=== PATIENT | male | born 1975 | race Hispanic/Latino ===

== ENCOUNTER 2019-04-22 18:46 | Emergency (ER) | payer OTHER ==
[2019-04-22] MEDS ORDERED: LIDOCAINE 2% MPF 5 ML VIAL ONE (21:06)
[2019-04-22] MEDS ORDERED: TETANUS & DIPHTHERIA TOX,ADULT 0.5 ML VIAL ONE (21:07)
[2019-04-22] MEDS ORDERED: CEFAZOLIN/SWI 1gm 1 GM/10 ML SYR ONE (21:07)
[2019-04-22 21:11] LABS: Absolute Lymphocytes (CBC) 3.4 K/uL (0.7-4.9); Hematocrit 45.8 % (39.6-49.0); Lymphocytes % 33.6 % (15.3-44.8); MPV 8.6 fL (7.6-11.3); RBC Red Blood Cell Count 5.26 M/uL (4.33-5.43)
[2019-04-22 21:12] LABS: Protime INR 1.02
[2019-04-22 21:33] LABS: ALT/SGPT 39 U/L (12-78); AST/SGOT 21 U/L (15-37); Albumin 4.2 g/dL (3.4-5.0); Alkaline Phosphatase 66 U/L (45-117); BUN Blood Urea Nitrogen 22 mg/dL (7-18); Bicarbonate 29 mmol/L (21-32); Bilirubin Direct 0.1 mg/dL (0-0.2); Bilirubin Total 0.5 mg/dL (0.2-1.0); Glucose Level 91 mg/dL (74-106); Magnesium 2.3 mg/dL (1.8-2.4); NT PRO-BNP 25 pg/mL (<125); Potassium 3.8 mmol/L (3.5-5.1); Protein, Total 7.6 g/dL (6.4-8.2); Sodium Level 140 mmol/L (136-145); Troponin (Emerg Dept Use Only) < 0.02 ng/mL (0.0-0.045)
--- NOTE | 2019-04-22 22:19 | ER ---
Nurse's Notes [facility] Name: Ethan Otero Age: 44 yrs Sex: Male : 1975 Arrival Date: 04/22/2019 Time: 18:49 Bed 20 Private MD: Diagnosis: Fall due to bumping against object;Syncope and collapse;Heat exhaustion, unspecified;Laceration without foreign body of other part of head-nasal Presentation: 04/22 18:49 Presenting complaint: Patient states: was vomiting, walked to go get some water, felt iw dizzy and faint, felt like he was going to pass out, only remembers feeling something hit his face and then there was blood all over his face, nose was bleeding,laceration to nose, denies dizziness now, still feels nauseated, takes promethazine for nausea, incident occurred at 1615, had to be seen by medic at work before coming to ER. Transition of care: patient was not received from another setting of care. Onset of symptoms was April 22, 2019 at 16:15. Risk Assessment: Do you want to hurt yourself or someone else? Patient reports no desire to harm self or others. Initial Sepsis Screen: Does the patient meet any 2 criteria? No. Patient's initial sepsis screen is negative. Does the patient have a suspected source of infection? No. Patient's initial sepsis screen is negative. Care prior to arrival: None. 18:49 Method Of Arrival: Ambulatory iw 18:49 Acuity: DAVIDE 2 iw Historical: - Allergies: 18:53 No Known Allergies; iw - Home Meds: 18:53 lisinopril 40 mg Oral tab 1 tab once daily [Active]; iw - PMHx: 18:53 Hypertension; iw - PSHx: 18:53 left knee; iw - Immunization history:: Adult Immunizations not up to date. - Social history:: Smoking status: Patient uses tobacco products, smokes one-half pack cigarettes per day. - Ebola Screening: : Patient negative for fever greater than or equal to 101.5 degrees Fahrenheit, and additional compatible Ebola Virus Disease symptoms Patient denies exposure to infectious person Patient denies travel to an Ebola-affected area in the 21 days before illness onset No symptoms or risks identified at this time. - Family history:: not pertinent. Screenin:15 Abuse screen: Denies threats or abuse. Denies injuries from another. Nutritional aa1 screening: No deficits noted. Tuberculosis screening: No symptoms or risk factors identified. Fall Risk Fall in past 12 months (25 points). Assessment: 19:15 General: Appears in no apparent distress. comfortable, Behavior is calm, cooperative, aa1 appropriate for age. Pain: Denies pain. Neuro: Level of Consciousness is awake, alert, obeys commands, Oriented to person, place, time, situation, Moves all extremities. Full function Gait is steady, Speech is normal, Pupils are PERRLA, Denies weakness blurred vision dizziness. Cardiovascular: Reports syncope, Denies chest pain, diaphoresis, lightheadedness, palpitations, shortness of breath, Heart tones S1 S2 present Capillary refill < 3 seconds Patient's skin is warm and dry. Rhythm is regular. Respiratory: Airway is patent Respiratory effort is even, unlabored, Respiratory pattern is regular, symmetrical. GI: No signs and/or symptoms were reported involving the gastrointestinal system. : No signs and/or symptoms were reported regarding the genitourinary system. EENT: Nares with bleeding noted on right. Derm: Skin is intact, is healthy with good turgor, Skin is pink, warm \T\ dry. Musculoskeletal: Circulation, motion, and sensation intact. Capillary refill < 3 seconds. 20:15 Reassessment: Patient appears in no apparent distress at this time. Patient and/or aa1 family updated on plan of care and expected duration. Pain level reassessed. Patient is alert, oriented x 3, equal unlabored respirations, skin warm/dry/pink. Pt continues to await initial assessment from ERP. 21:25 Reassessment: Patient appears in no apparent distress at this time. Patient and/or aa1 family updated on plan of care and expected duration. Pain level reassessed. Patient is alert, oriented x 3, equal unlabored respirations, skin warm/dry/pink. Awaiting provider for lac repair. 22:25 Reassessment: Patient appears in no apparent distress at this time. Patient and/or aa1 family updated on plan of care and expected duration. Pain level reassessed. Patient is alert, oriented x 3, equal unlabored respirations, skin warm/dry/pink. Pt awaiting ERP for lac repair. 22:31 Reassessment: ERP at bedside for lac repair; pt to be dc'd once procedure complete. aa1 22:43 Reassessment: Patient appears in no apparent distress at this time. Patient is alert, aa1 oriented x 3, equal unlabored respirations, skin warm/dry/pink. Discussed d/c \T\ f/u instructions with pt; denies questions or concerns at this time. Vital Signs: 18:53 BP 155 / 104; Pulse 73; Resp 16 S; Temp 99.4(TE); Pulse Ox 98% on R/A; Weight 88.45 kg; iw Height 5 ft. 10 in. (177.80 cm); Pain 0/10; 19:38 BP 146 / 104; Pulse 78; Resp 18; Pulse Ox 99% on R/A; Pain 0/10; aa1 20:30 BP 154 / 106; Pulse 65; Resp 14; Pulse Ox 97% on R/A; Pain 0/10; aa1 21:25 BP 159 / 104; Pulse 64; Resp 14; Temp 98.3; Pulse Ox 96% on R/A; Pain 0/10; aa1 22:43 BP 149 / 94; Pulse 61; Resp 18; Temp 98.1; Pulse Ox 98% on R/A; Pain 0/10; aa1 18:53 Body Mass Index 27.98 (88.45 kg, 177.80 cm) iw ED Course: 18:49 Patient arrived in ED. iw 18:53 Triage completed. iw 18:53 Arm band placed on. iw 19:15 Patient has correct armband on for positive identification. Placed in gown. Bed in low aa1 position. Call light in reach. Pulse ox on. NIBP on. Warm blanket given. 19:32 Svitlana Vallejo, RN is Primary Nurse. aa1 20:03 Quan Rodas MD is Attending Physician. cam 20:55 Initial lab(s) drawn, by me, sent to lab. EKG done, by ED staff, reviewed by Quan Rodas MD. Inserted saline lock: 18 gauge in right antecubital area, using aseptic technique. Blood collected. 21:08 CT completed. Patient tolerated procedure well. Patient moved back from CT. mw3 21:16 XRAY Chest (1 view) In Process Unspecified. EDMS 21:22 CT Head C Spine In Process Unspecified. EDMS 21:22 CT Facial Bones W/O Con In Process Unspecified. EDMS 22:18 Adela Wright MD is Referral Physician. [facility] 22:31 Assist provider with laceration repair on right nostril that was 2.5 cm. or less using aa1 sutures. Set up tray. Performed by Quan Rodas MD Dressed with Neosporin, Patient tolerated well. 22:43 IV discontinued, intact, bleeding controlled, No redness/swelling at site. Pressure aa1 dressing applied. 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 Exp: aa1 12/22/2020. Lot #: [id number]. } Route: IM; Site: right deltoid; 22:02 Follow up: Response: No adverse reaction aa1 22:32 Drug: Lidocaine (1 %) 2 ml Volume: 5 ml; Route: Infiltration; aa1 Outcome: 22:18 Discharge ordered by . [facility] 22:43 Discharged to home ambulatory, with family. aa1 22:43 Condition: good 22:43 Discharge instructions given to patient, family, Instructed on discharge instructions, follow up and referral plans. medication usage, wound care, Demonstrated understanding of instructions, follow-up care, medications, wound care. 22:45 Patient left the ED. aa1 Signatures: Dispatcher [employer] Svitlana Castañeda RN RN aa1 Anderson, Corey, MD MD cha Williams, Irene, RN RN iw Willis, Michelle mw3
--- NOTE | 2019-04-22 22:19 | EDPHYS ---
Physician Documentation [facility] Name: Ethan Otero Age: 44 yrs Sex: Male : 1975 Arrival Date: 04/22/2019 Time: 18:49 Bed 20 Private MD: ED Physician Quan Rodas HPI: 04/22 20:57 This 44 yrs old Male presents to ER via Ambulatory with complaints of Passed cam Out Prior To Arrival. 20:57 The patient has experienced syncope, collapsed. Onset: The symptoms/episode cam began/occurred just prior to arrival. Duration: This was a single episode, that lasted 20 second(s). Context: the episode(s) was witnessed, by co-worker(s). Associated injury: Head/face:. Associated signs and symptoms: The patient has no apparent associated signs or symptoms. The patient has not experienced similar symptoms in the past. Historical: - Allergies: 18:53 No Known Allergies; iw - Home Meds: 18:53 lisinopril 40 mg Oral tab 1 tab once daily [Active]; iw - PMHx: 18:53 Hypertension; iw - PSHx: 18:53 left knee; iw - Immunization history:: Adult Immunizations not up to date. - Social history:: Smoking status: Patient uses tobacco products, smokes one-half pack cigarettes per day. - Ebola Screening: : Patient negative for fever greater than or equal to 101.5 degrees Fahrenheit, and additional compatible Ebola Virus Disease symptoms Patient denies exposure to infectious person Patient denies travel to an Ebola-affected area in the 21 days before illness onset No symptoms or risks identified at this time. - Family history:: not pertinent. ROS: 20:57 Constitutional: Negative for fever, chills, and weight loss, Eyes: Negative for injury, cam pain, redness, and discharge, ENT: Negative for injury, pain, and discharge, Neck: Negative for injury, pain, and swelling, Cardiovascular: Negative for chest pain, palpitations, and edema, Respiratory: Negative for shortness of breath, cough, wheezing, and pleuritic chest pain, Abdomen/GI: Negative for abdominal pain, nausea, vomiting, diarrhea, and constipation, Back: Negative for injury and pain, : Negative for injury, bleeding, discharge, and swelling, MS/Extremity: Negative for injury and deformity, Psych: Negative for depression, anxiety, suicide ideation, homicidal ideation, and hallucinations, Allergy/Immunology: Negative for hives, rash, and allergies, Endocrine: Negative for neck swelling, polydipsia, polyuria, polyphagia, and marked weight changes, Hematologic/Lymphatic: Negative for swollen nodes, abnormal bleeding, and unusual bruising. 20:57 Skin: Positive for laceration(s), swelling, of the nose. Exam: 20:57 Constitutional: This is a well developed, well nourished patient who is awake, alert, cam and in no acute distress. Eyes: Pupils equal round and reactive to light, extra-ocular motions intact. Lids and lashes normal. Conjunctiva and sclera are non-icteric and not injected. Cornea within normal limits. Periorbital areas with no swelling, redness, or edema. Neck: Trachea midline, no thyromegaly or masses palpated, and no cervical lymphadenopathy. Supple, full range of motion without nuchal rigidity, or vertebral point tenderness. No Meningismus. Chest/axilla: Normal chest wall appearance and motion. Nontender with no deformity. No lesions are appreciated. Cardiovascular: Regular rate and rhythm with a normal S1 and S2. No gallops, murmurs, or rubs. Normal PMI, no JVD. No pulse deficits. Respiratory: Lungs have equal breath sounds bilaterally, clear to auscultation and percussion. No rales, rhonchi or wheezes noted. No increased work of breathing, no retractions or nasal flaring. Abdomen/GI: Soft, non-tender, with normal bowel sounds. No distension or tympany. No guarding or rebound. No evidence of tenderness throughout. Back: No spinal tenderness. No costovertebral tenderness. Full range of motion. Male : Normal genitalia with no discharge or lesions. Skin: Warm, dry with normal turgor. Normal color with no rashes, no lesions, and no evidence of cellulitis. MS/ Extremity: Pulses equal, no cyanosis. Neurovascular intact. Full, normal range of motion. Neuro: Awake and alert, GCS 15, oriented to person, place, time, and situation. Cranial nerves II-XII grossly intact. Motor strength 5/5 in all extremities. Sensory grossly intact. Cerebellar exam normal. Normal gait. Psych: Awake, alert, with orientation to person, place and time. Behavior, mood, and affect are within normal limits. 20:57 Head/face: Noted is a laceration(s), that is jagged, .5 cm(s), of the right nostril. Vital Signs: 18:53 BP 155 / 104; Pulse 73; Resp 16 S; Temp 99.4(TE); Pulse Ox 98% on R/A; Weight 88.45 kg; iw Height 5 ft. 10 in. (177.80 cm); Pain 0/10; 19:38 BP 146 / 104; Pulse 78; Resp 18; Pulse Ox 99% on R/A; Pain 0/10; aa1 20:30 BP 154 / 106; Pulse 65; Resp 14; Pulse Ox 97% on R/A; Pain 0/10; aa1 21:25 BP 159 / 104; Pulse 64; Resp 14; Temp 98.3; Pulse Ox 96% on R/A; Pain 0/10; aa1 22:43 BP 149 / 94; Pulse 61; Resp 18; Temp 98.1; Pulse Ox 98% on R/A; Pain 0/10; aa1 18:53 Body Mass Index 27.98 (88.45 kg, 177.80 cm) iw Laceration: 20:57 Wound Repair of 0.5cm ( 0.2in ) subcutaneous laceration to right nostril. Irregularly cam shaped.. Hemostasis noted.. Distal neuro/vascular/tendon intact. Anesthesia: Local anesthetic administered with 2 mls of 1% lidocaine. Wound prep: Simple cleansing by me. Skin closed with 2 6-0 Prolene using interrupted sutures and sterile technique. Dressed with Neosporin. Patient tolerated well. MDM: 20:03 Patient medically screened. [facility] 22:17 Data reviewed: vital signs, nurses notes, lab test result(s), EKG, radiologic studies, [facility] CT scan, plain films. 04/22 20:48 Order name: Basic Metabolic Panel; Complete Time: 22:16 [facility] 04/22 20:48 Order name: CBC with Diff; Complete Time: 22:16 [facility] 04/22 20:48 Order name: LFT's; Complete Time: 22:16 [facility] 04/22 20:48 Order name: Magnesium; Complete Time: 22:16 aa 04/22 20:48 Order name: NT PRO-BNP; Complete Time: 22:16 aa 04/22 20:48 Order name: PT-INR; Complete Time: 22:16 [facility] 04/22 20:48 Order name: Troponin (emerg Dept Use Only); Complete Time: 22:16 [facility] 04/22 20:48 Order name: XRAY Chest (1 view) [facility] 04/22 20:57 Order name: ETOH Level; Complete Time: 22:16 [facility] 04/22 20:57 Order name: CT Head C Spine [facility] 04/22 20:57 Order name: CT Facial Bones W/O Con [facility] 04/22 20:48 Order name: EKG; Complete Time: 20:49 [facility] 04/22 20:48 Order name: Cardiac monitoring; Complete Time: 20:49 [facility] 04/22 20:48 Order name: EKG - Nurse/Tech; Complete Time: 20:59 [facility] 04/22 20:48 Order name: IV Saline Lock; Complete Time: 20:59 [facility] 04/22 20:48 Order name: Labs collected and sent; Complete Time: 21:00 [facility] 04/22 20:48 Order name: O2 Per Protocol; Complete Time: 20:49 [facility] 04/22 20:48 Order name: O2 Sat Monitoring; Complete Time: 20:49 [facility] 04/22 20:57 Order name: Suture Tray at Bedside; Complete Time: 22:02 [facility] 04/22 20:57 Order name: Prolene, Sutures; Complete Time: 21:01 [facility] 04/22 20:57 Order name: Dressing - Wound; Complete Time: 21:01 [facility] 04/22 20:57 Order name: Gloves, Sterile; Complete Time: 21:01 [facility] 04/22 20:57 Order name: Ice pack; Complete Time: 21:01 [facility] Administered Medications: 21:15 Drug: Ancef 1 grams Route: IVPB; Site: right antecubital; aa1 21:30 Follow up: IV Status: Completed infusion aa1 21:18 Drug: Tetanus-Diphtheria Toxoid Adult 0.5 ml {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 Exp: aa1 12/22/2020. Lot #: [id number]. } Route: IM; Site: right deltoid; 22:02 Follow up: Response: No adverse reaction aa1 22:32 Drug: Lidocaine (1 %) 2 ml Volume: 5 ml; Route: Infiltration; aa1 Disposition: 04/22/19 22:18 Discharged to Home. Impression: Fall due to bumping against object, Syncope and collapse, Heat exhaustion, unspecified, Laceration without foreign body of other part of head - nasal. - Condition is Stable. - Discharge Instructions: Facial Laceration, Syncope, Facial Laceration, [id number], Syncope, [id number], Heat Exhaustion Information. - Prescriptions for Keflex 500 mg Oral Capsule - take 1 capsule by ORAL route every 6 hours for 7 days; 28 capsule. - Work release form, Medication Reconciliation Form, Thank You Letter, Antibiotic Education, Prescription Opioid Use form. - Follow up: Private Physician; When: 2 - 3 days; Reason: Recheck today's complaints, Continuance of care, Re-evaluation by your physician. Follow up: Adela Wright; When: 5 - 6 days; Reason: Recheck today's complaints, Re-evaluation by your physician. - Problem is new. - Symptoms have improved. Signatures: Dispatcher [employer] EDSvitlana Emery RN RN aa1 Quan Rodas MD MD cha Williams, Irene, RN RN iw Corrections: (The following items were deleted from the chart) 22:45 22:18 04/22/2019 22:18 Discharged to Home. Impression: Fall due to bumping against aa1 object; Syncope and collapse; Heat exhaustion, unspecified; Laceration without foreign body of other part of head - nasal. Condition is Stable. Discharge Instructions: Facial Laceration, Syncope, Facial Laceration, [id number], Syncope, [id number], Heat Exhaustion Information. Prescriptions for Keflex 500 mg Oral Capsule - take 1 capsule by ORAL route every 6 hours for 7 days; 28 capsule. and Forms are Medication Reconciliation Form, Thank You Letter, Antibiotic Education, Prescription Opioid Use. Follow up: Private Physician; When: 2 - 3 days; Reason: Recheck today's complaints, Continuance of care, Re-evaluation by your physician. Follow up: Adela Wright; When: 5 - 6 days; Reason: Recheck today's complaints, Re-evaluation by your physician. Problem is new. Symptoms have improved. cam
--- NOTE | 2019-04-22 23:29 | RAD REPORT ---
EXAM DESCRIPTION: Shannon Single View04/22/2019 9:17 pm CLINICAL HISTORY: Hypertension COMPARISON: none FINDINGS: The lungs appear clear of acute infiltrate. The heart is normal size IMPRESSION: No acute abnormalities displayed
[2019-04-23 03:49] VITALS: BP 159/104; TEMP 98.3; O2SAT 96
--- NOTE | 2019-04-23 07:39 | EKG ---
Test Date: 2019-04-22 Test Time: 20:56:06 Claim Manager: ERUM MEASUREMENT RESULTS: Intervals: Rate: 63 TX: 162 QRSD: 92 QT: 380 QTc: 388 [place]: P: 11 TX: 162 QRS: 35 T: 23 INTERPRETIVE STATEMENTS: Normal sinus rhythm Normal ECG No previous ECG available for comparison Electronically Signed On 04-23-19 07:37:46 CDT by Nicholas Ackerman
--- NOTE | 2019-04-23 11:41 | RAD REPORT ---
EXAM DESCRIPTION: CT - Facial Bones W/ Mpr - 04/23/2019 2:07 am CLINICAL HISTORY: Trauma. COMPARISON: None. TECHNIQUE: CT scan of the brain, cervical spine, and facial bones without IV contrast. This exam was performed according to our departmental dose-optimization program, which includes automated exposure control, adjustment of the mA and/or kV according to patient size and/or use of iterative reconstruc tion technique. FINDINGS: BRAIN: The ventricles, cisterns, and sulci are age-appropriate. No evidence of acute infarction, intracrania l hemorrhage, extra-axial fluid collection, or midline shift. No depressed skull fracture. CERVICAL SPINE: No acute cervical fracture or prevertebral soft tissue swelling is seen. There is straightening of th e normal cervical lordosis, which may be due to cervical collar, muscle spasm, or patient positioning . The disc spaces and facet joints are observed. No high-grade spinal canal stenosis is seen. FACIAL BONES: No acute facial bone fracture is seen. Mild mucosal thickening of the left maxillary sinus. The masto id air cells are clear. No retrobulbar mass or hematoma is identified. IMPRESSION: 1. No acute intracranial abnormality. 2. No acute fracture or subluxation of the cervical spine. 3. No acute maxillofacial fracture. Electronically signed by: Suleman Newell MD 04/22/2019 9:50 PM CDT Due to temporary technical issues with the PACS/Fluency reporting system, reports are being signed by the in house radiologist as a courtesy to ensure prompt reporting. The interpreting radiologist is f ully responsible for the content of the report.
--- NOTE | 2019-04-23 11:42 | RAD REPORT ---
EXAM DESCRIPTION: CT - Head C Spine Mpr Wo Con - 04/23/2019 2:07 am CLINICAL HISTORY: Trauma. COMPARISON: None. TECHNIQUE: CT scan of the brain, cervical spine, and facial bones without IV contrast. This exam was performed according to our departmental dose-optimization program, which includes automated exposure control, adjustment of the mA and/or kV according to patient size and/or use of iterative reconstruc tion technique. FINDINGS: BRAIN: The ventricles, cisterns, and sulci are age-appropriate. No evidence of acute infarction, intracrania l hemorrhage, extra-axial fluid collection, or midline shift. No depressed skull fracture. CERVICAL SPINE: No acute cervical fracture or prevertebral soft tissue swelling is seen. There is straightening of th e normal cervical lordosis, which may be due to cervical collar, muscle spasm, or patient positioning . The disc spaces and facet joints are observed. No high-grade spinal canal stenosis is seen. FACIAL BONES: No acute facial bone fracture is seen. Mild mucosal thickening of the left maxillary sinus. The masto id air cells are clear. No retrobulbar mass or hematoma is identified. IMPRESSION: 1. No acute intracranial abnormality. 2. No acute fracture or subluxation of the cervical spine. 3. No acute maxillofacial fracture. Electronically signed by: Suleman Newell MD 04/22/2019 9:50 PM CDT Due to temporary technical issues with the PACS/Fluency reporting system, reports are being signed by the in house radiologist as a courtesy to ensure prompt reporting. The interpreting radiologist is f ully responsible for the content of the report.
== END 2019-04-22 22:45 | disposition home or self-care (01) ==
LOC: ER 18:46
PROC: 0JQ10ZZ Repair Face Subcutaneous Tissue and Fascia, Open Approach (ICD-10-PCS; principal; 2019-04-22)
DX: T67.5XXA Heat exhaustion, unspecified, initial encounter (principal); S01.21XA Laceration without foreign body of nose, initial encounter; I10 Essential (primary) hypertension; F17.210 Nicotine dependence, cigarettes, uncomplicated; X30.XXXA Exposure to excessive natural heat, initial encounter; Y93.89 Activity, other specified; Y92.9 Unspecified place or not applicable; Y99.0 Civilian activity done for income or pay; W18.00XA Striking against unspecified object with subsequent fall, initial encounter; Z23 Encounter for immunization
CPT/HCPCS: 93005; 85025; 80048; 36415; 80320; 83735; 85610; 80076; 84484; 83880; 70450; 72125; 70486; 76377; 71045; 90471; 90714; 96374; 99285; 12011; J0690

== ENCOUNTER 2019-04-30 19:03 | Emergency (ER) | payer OTHER ==
--- NOTE | 2019-04-30 19:33 | EDPHYS ---
Physician Documentation [facility] Name: Ethan Otero Age: 44 yrs Sex: Male : 1975 Arrival Date: 04/30/2019 Time: 19:04 Bed 12 Private MD: ED Physician Juan Zambrano HPI: 04/30 19:30 This 44 yrs old Male presents to ER via Ambulatory with complaints of STITCHES cp REMOVAL. 19:30 The patient has sutures on the nose. Previous treatment: The patient was initially cp treated on April 22, 2019, the care was rendered at [facility], Treatment type: The patient's original treatment included sutures. Sutures/narciso progress: The patient has no c/o's. The wound is well-healing with no redness, swelling, discharge, or dehiscence reported. Historical: - Allergies: 19:15 No Known Allergies; aj1 - PMHx: 19:15 Hypertension; bacteria in my stomach; Anxiety; Migraines; aj1 - Immunization history:: Flu vaccine is not up to date. - Social history:: Smoking status: Patient uses tobacco products, denies chronic smoking, but will smoke occasionally. - Ebola Screening: : Patient denies travel to an Ebola-affected area in the 21 days before illness onset. ROS: 19:30 All other systems are negative. cp Exam: 19:30 Skin: Wound recheck: Suture laceration closure: the edges are well approximated, no cp evidence of dehiscence, no drainage, no erythema, no swelling. Vital Signs: 19:15 BP 145 / 106; Pulse 90; Resp 18; Temp 98.3; Pulse Ox 96% on R/A; Pain 0/10; aj1 Procedures: 21:00 Suture/Staple removal: Removed 2 sutures, from nose, site appears well healed, Patient cp tolerated well. MDM: 19:22 Patient medically screened. cp 19:31 Data reviewed: vital signs, nurses notes, and as a result, I will discharge patient. cp Counseling: I had a detailed discussion with the patient and/or guardian regarding: the historical points, exam findings, and any diagnostic results supporting the discharge/admit diagnosis, to return to the emergency department if symptoms worsen or persist or if there are any questions or concerns that arise at home. 04/30 19:29 Order name: Suture Removal; Complete Time: 21:23 cp Administered Medications: 20:19 Drug: Lidocaine Gel 2 % 1 ea Volume: 15 ml; Route: Mucous Membrane; aj1 Disposition: 21:30 Chart complete. cp Disposition: 04/30/19 19:32 Discharged to Home. Impression: Encounter for removal of sutures. - Condition is Stable. - Discharge Instructions: Suture Removal, Care After. - Medication Reconciliation Form, Thank You Letter, Antibiotic Education, Prescription Opioid Use form. - Follow up: Private Physician; When: As needed; Reason: Worsening of condition. - Problem is new. - Symptoms have improved. Addendum: 05/03/2019 09:10 Co-signature as Attending Physician, Juan Zambrano MD I agree with the assessment and k dr plan of care. Signatures: Dariana Agrawal RN RN aj1 Juan Zambrano MD MD [facility] Quan George PA PA cp Corrections: (The following items were deleted from the chart) 04/30 21:24 19:32 04/30/2019 19:32 Discharged to Home. Impression: Encounter for removal of aj1 sutures. Condition is Stable. Forms are Medication Reconciliation Form, Thank You Letter, Antibiotic Education, Prescription Opioid Use. Follow up: Private Physician; When: As needed; Reason: Worsening of condition. Problem is new. Symptoms have improved. cp
--- NOTE | 2019-04-30 19:33 | ER ---
Nurse's Notes [facility] Name: Ethan Otero Age: 44 yrs Sex: Male : 1975 Arrival Date: 04/30/2019 Time: 19:04 Bed 12 Private MD: Diagnosis: Encounter for removal of sutures Presentation: 04/30 19:13 Presenting complaint: Patient states: He has sutures put in his nose last aj1 night and now hes here to have them removed. Transition of care: patient was not received from another setting of care. Onset of symptoms was April 2019. Risk Assessment: Do you want to hurt yourself or someone else? Patient reports no desire to harm self or others. Initial Sepsis Screen: Does the patient meet any 2 criteria? No. Patient's initial sepsis screen is negative. Does the patient have a suspected source of infection? No. Patient's initial sepsis screen is negative. Care prior to arrival: None. 19:13 Method Of Arrival: Ambulatory aj1 19:13 Acuity: DAVIDE 5 aj1 Triage Assessment: 19:15 General: Appears in no apparent distress. comfortable, Behavior is calm, cooperative, aj1 appropriate for age. Pain: Denies pain. Neuro: Level of Consciousness is awake, alert, obeys commands. Cardiovascular: Patient's skin is warm and dry. Respiratory: Airway is patent Respiratory effort is even, unlabored, Respiratory pattern is regular, symmetrical. GI: No signs and/or symptoms were reported involving the gastrointestinal system. : No signs and/or symptoms were reported regarding the genitourinary system. Derm: Skin is pink, warm \T\ dry. normal. Musculoskeletal: Circulation, motion, and sensation intact. Historical: - Allergies: 19:15 No Known Allergies; aj1 - PMHx: 19:15 Hypertension; bacteria in my stomach; Anxiety; Migraines; aj1 - Immunization history:: Flu vaccine is not up to date. - Social history:: Smoking status: Patient uses tobacco products, denies chronic smoking, but will smoke occasionally. - Ebola Screening: : Patient denies travel to an Ebola-affected area in the 21 days before illness onset. Screenin:16 Abuse screen: Denies threats or abuse. Denies injuries from another. Nutritional aj1 screening: No deficits noted. Tuberculosis screening: No symptoms or risk factors identified. Fall Risk None identified. Assessment: 19:16 Reassessment: see triage assessment. aj1 Vital Signs: 19:15 BP 145 / 106; Pulse 90; Resp 18; Temp 98.3; Pulse Ox 96% on R/A; Pain 0/10; aj1 ED Course: 19:04 Patient arrived in ED. as 19:14 Triage completed. aj1 19:15 Arm band placed on Patient placed in an exam room. aj1 19:16 Patient has correct armband on for positive identification. Bed in low position. Call aj1 light in reach. 19:16 No provider procedures requiring assistance completed. Patient did not have IV access aj1 during this emergency room visit. 19:22 Quan eGorge PA is PHCP. cp 19:22 Juan Zambrano MD is Attending Physician. cp 20:19 Dariana Agrawal, RN is Primary Nurse. aj1 Administered Medications: 20:19 Drug: Lidocaine Gel 2 % 1 ea Volume: 15 ml; Route: Mucous Membrane; aj1 Outcome: 19:32 Discharge ordered by MD. cp 20:30 Discharged to home ambulatory. aj1 20:30 Condition: good 20:30 Discharge instructions given to patient, Instructed on discharge instructions, follow up and referral plans. Demonstrated understanding of instructions, follow-up care. 21:24 Patient left the ED. aj1 Signatures: Dariana Agrawal RN RN aj1 Digna Dixon as Quan George PA PA cp
[2019-04-30] MEDS ORDERED: LIDOCAINE JELLY 2%- 5 ML TUBE ONE (20:17)
[2019-04-30 22:31] VITALS: BP 145/106; TEMP 98.3; O2SAT 96
== END 2019-04-30 21:24 | disposition home or self-care (01) ==
LOC: ER 19:03
DX: Z48.02 Encounter for removal of sutures (principal)
CPT/HCPCS: 99283